=== PATIENT | female | born 1945 | race Hispanic/Latino ===

== ENCOUNTER 2017-05-30 20:33 | Emergency (ER) | payer OTHER, SELFPAY ==
[2017-05-30] MEDS ORDERED: Ibuprofen 200 MG TAB ONE (21:07)
[2017-05-30] MEDS ORDERED: Ondansetron HCl/PF 4 MG/2 ML Vial ONE (21:07)
--- NOTE | 2017-05-30 21:24 | RAD ---
PORTABLE CHEST: Date: 05-30-17 Provided Clinical History: Dyspnea. FINDINGS: No comparison. Cardiomediastinal silhouette is within normal limits. No focal consolidation, pleural fluid, or pneumothorax apparent. IMPRESSION: No evidence for an acute cardiopulmonary process. POS: [facility]
[2017-05-30 21:40] LABS: #Basophils 0.2 thou/uL (0.0-0.2); #Eosinphils 0.5 thou/uL (0.0-0.7); #Lymphocytes 0.8 thou/uL (1.20-3.40); #Monocytes 0.8 thou/uL (0.11-0.59); #Neutrophils 9.7 thou/uL (1.40-6.50); %Basophils 1.4 % (0.0-1.0); %Lymphocytes 6.9 % (21.0-51.0); %Monocytes 6.6 % (0.0-10.0); %Neutrophils 81.2 % (42.0-75.0); Hemoglobin 9.5 g/dL (12.0-16.0); Mean Corpuscular HGB CONC 31.6 g/dL (32.0-36.0); Mean Corpuscular Hemoglobin 25.5 pg (27.0-31.0); Mean Corpuscular Volume 80.7 fl (81.0-99.0); Mean Platelet Volume 7.3 fL (7.4-10.4); Platelet Count 413 thou/uL (130-400); RBC Distribution Width 14.2 % (11.5-14.5); Red Blood Cell (RBC) Count 3.73 mill/uL (4.20-5.40)
[2017-05-30 22:02] LABS: ALT (SGPT) 13 U/L (8-55); AST (SGOT) 21 U/L (5-34); Albumin 3.9 g/dL (3.4-4.8); Alkaline Phosphatase 90 U/L (40-150); Anion Gap 17 mmol/L (10-20); BUN (Urea Nitrogen) 14 mg/dL (9.8-20.1); Bilirubin, Total 0.1 mg/dL (0.2-1.2); Calc. Creatinine Clearance 0 mL/min (70-130); Carbon Dioxide 21 mmol/L (23-31); Chloride 102 mmol/L (98-107); Estimated GFR-MDRD 45; Globulin 4.1 g/dL (2.4-3.5); Glucose 123 mg/dL (80-115); Potassium 3.9 mmol/L (3.5-5.1); Sodium 136 mmol/L (136-145)
[2017-05-30] MEDS ORDERED: Oseltamivir 75 MG CAP ONE (22:06)
== END 2017-05-30 22:50 | disposition home or self-care (01) ==
LOC: NAV ERS 20:33
DX: J11.1 Influenza due to unidentified influenza virus with other respiratory manifestations (principal); I10 Essential (primary) hypertension; Z79.899 Other long term (current) drug therapy
CPT/HCPCS: 71010; 80053; 83605; 85025; 87040; 93005; 96374; J2405

== ENCOUNTER 2019-04-14 10:34 | Emergency (ER) | payer OTHER, SELFPAY ==
[2019-04-14] MEDS ORDERED: traMADol HCl 50 MG TAB ONE (10:59)
[2019-04-14] MEDS ORDERED: Amoxicillin/Potassium Clav 875 MG TAB ONE (11:00)
== END 2019-04-14 11:07 | disposition home or self-care (01) ==
LOC: NAV ERS 10:34
DX: K04.7 Periapical abscess without sinus (principal); K02.9 Dental caries, unspecified; I10 Essential (primary) hypertension; Z79.899 Other long term (current) drug therapy
CPT/HCPCS: 99283

== ENCOUNTER 2020-12-01 09:17 | Emergency (ER) | payer SELFPAY ==
[2020-12-01] MEDS ORDERED: Ketorolac Tromethamine 30 MG/ML VIAL ONE (09:48)
[2020-12-01] MEDS ORDERED: methylPREDNISolone Sod Succ/PF 125 MG/2 ML VIAL ONE (09:49)
== END 2020-12-01 10:04 | disposition home or self-care (01) ==
LOC: NAV ERS 09:17
DX: M17.11 Unilateral primary osteoarthritis, right knee (principal); I10 Essential (primary) hypertension
CPT/HCPCS: 96372; 99283; J1885; J2930

== ENCOUNTER 2022-04-27 15:25 | Emergency (ER) | payer MEDICAID, SELFPAY ==
[~2022-04-27 15:25] MED LIST: Iopamidol 370 76% 100 ML VIAL ONE
[2022-04-27 17:04] LABS: #Basophils 0.1 thou/uL (0.0-0.2); #Eosinphils 0.3 thou/uL (0.0-0.7); #Lymphocytes 1.5 thou/uL (1.20-3.40); #Monocytes 0.6 thou/uL (0.11-0.59); #Neutrophils 9.5 thou/uL (1.40-6.50); %Eosinophils 2.3 % (0.0-10.0); %Lymphocytes 12.2 % (21.0-51.0); %Monocytes 5.1 % (0.0-10.0); %Neutrophils 79.5 % (42.0-75.0); Hemoglobin 5.9 g/dL (12.0-16.0); Platelet Count 645 10x3/uL (130-400); RBC Distribution Width 18.6 % (11.5-14.5); Red Blood Cell (RBC) Count 3.09 mill/uL (4.20-5.40); White Blood Cell (WBC) Count 11.9 10x3/uL (4.8-10.8)
[2022-04-27 17:12] LABS: Anisocytosis MODERATE=16-30 cells (100X) (0-5/hpf); Microcytosis SLIGHT = 6-15 cells (100X) (0-5/hpf); Platelet Morphology Comment Appears Increased
[2022-04-27 17:13] LABS: Elliptocytes SLIGHT = 2-5 cells (100X) (0-1/hpf); Hypochromia SLIGHT = 6-15 cells (100X) (0-5/hpf); Macrocytosis SLIGHT = 6-15 cells (100X) (0-5/hpf); Stomatocytes SLIGHT = 2-5 cells (100X) (0-1/hpf); Target Cells SLIGHT = 2-5 cells (100X) (0-1/hpf)
[2022-04-27 17:14] LABS: ALT (SGPT) 88 U/L (8-55); AST (SGOT) 53 U/L (5-34); Albumin 3.8 g/dL (3.4-4.8); Alkaline Phosphatase 93 U/L (40-110); Anion Gap 16 mmol/L (10-20); BUN (Urea Nitrogen) 31 mg/dL (9.8-20.1); Bilirubin, Total 0.3 mg/dL (0.2-1.2); Calc. Creatinine Clearance 0 mL/min (70-130); Calcium 8.6 mg/dL (7.8-10.44); Carbon Dioxide 20 mmol/L (23-31); Chloride 109 mmol/L (98-107); Estimated GFR 41; Globulin 3.3 g/dL (2.4-3.5); Glucose 102 mg/dL (83-110); Helmet Cells SLIGHT = 2-5 cells (100X) (0-1/hpf); Lipase 28 U/L (8-78); Potassium 4.6 mmol/L (3.5-5.1); Protein, Total 7.1 g/dL (5.8-8.1); Schistocytes SLIGHT = 2-5 cells (100X) (0-1/hpf); Sodium 140 mmol/L (136-145)
[2022-04-27 17:35] LABS: Prothrombin Time 13.6 sec (12.0-14.7)
[2022-04-27 17:44] LABS: Bilirubin Negative (Negative); Blood, Urine Negative (Negative); Clarity Clear (Clear); Glucose, Urine (Dipstick) Negative (Negative); Ketone, Urine Negative (Negative); Leukocyte Negative (Negative); Nitrite Negative (Negative); Protein, Urine (Dipstick) Negative (Neg-Trace); Specific Gravity, Urine 1.015 (1.005-1.030); Urobilinogen 0.2 mg/dL (Less than 2)
[2022-04-27] MEDS ORDERED: Sodium Chloride 0.9% 100 ML ONE (19:10)
[2022-04-27] MEDS ORDERED: Pantoprazole 40 MG VIAL ONE (19:10)
[2022-04-27] MEDS ORDERED: Sodium Chloride 0.9% 250 ML 250 ML ONE (20:08)
[2022-04-27 20:48] LABS: SARS-CoV-2 NAA Rapid Test Not Detected (NotDetected)
== END 2022-04-27 21:10 | disposition short-term general hospital (02) ==
LOC: NAV ERS 15:25
DX: K92.2 Gastrointestinal hemorrhage, unspecified (principal); D64.9 Anemia, unspecified; I10 Essential (primary) hypertension; Z20.822 Contact with and (suspected) exposure to COVID-19
CPT/HCPCS: 36415; 36430; 51701; 71045; 74177; 80053; 81003; 82274; 83690; 84484; 85025; 85610; 85730; 86850; 86900; 86901; 93005; 96374; C9113; J7050; P9016; Q9967; U0002

== ENCOUNTER 2024-12-12 18:45 | Outpatient (CLI) | payer SELFPAY | END 2024-12-12 18:46 | disposition home or self-care (01) | LOC: NAV RAD 18:45 | PROVIDERS: ATTEND Nurse Practitioner Family | DX: M25.551 Pain in right hip (principal); S72.141A Displaced intertrochanteric fracture of right femur, initial encounter for closed fracture ==